=== PATIENT | male | born 1985 | race Caucasian/White ===

== ENCOUNTER 2020-10-16 19:01 | Emergency (ER) | payer OTHER ==
--- NOTE | 2020-10-16 19:22 | ED.PDOC ---
History of Present Illness - General Chief Complaint: Laceration Stated Complaint: laceration to face Time Seen by Provider: 10/16/20 19:22 Additional Information: Patient is currently under quarantine at home for positive COVID-19 test. - History of Present Illness Initial Comments: Patient states he was in his yard about 2 hours ago when he slipped and fell, cutting the right side of his face and some exposed chain-link fencing. Patient denies any significant pain or swelling to the face, any difficulty opening his mouth or swallowing. No loss of consciousness or neck pain. Patient is unaware when his last tetanus shot was given to him. Occurred: this evening Severity: mild Pain Location: head Method of Injury: fall Improving Factors: nothing Worsening Factors: nothing Loss of Consciousness: no loss of consciousness Associated Symptoms (Fall): denies symptoms Review of Systems - Review of Systems Constitutional: States: chills, fever EENTM: States: nose congestion Respiratory: States: cough Cardiology: States: no symptoms reported Gastrointestinal/Abdominal: States: no symptoms reported Genitourinary: States: no symptoms reported Musculoskeletal: States: no symptoms reported Skin: States: no symptoms reported Neurological: States: no symptoms reported Endocrine: States: no symptoms reported Hematologic/Lymphatic: States: no symptoms reported Family Medical History - Family History Father Family History: Unknown Physical Exam - Physical Exam General Appearance: Alert, Comfortable Head Injury: no evidence of injury Eye Exam: bilateral normal ENT Exam: no dental injury, other - 3-1/2 cm slightly irregular laceration to the right cheek. No swelling or tenderness of facial bones. No trismus or loss of mandibular motion.The laceration does not go through to the oral mucosa. Neck Exam: non-tender, full range of motion Cardiovascular/Respiratory: regular rate, rhythm, normal breath sounds Gastrointestinal/Abdominal: normal bowel sounds, non tender, soft Back Exam: normal inspection, no CVA tenderness Extremity Exam: no evidence of injury Neurologic: sheetrock applicator II-XII nml as tested, no motor/sensory deficits, normal mood/affect, oriented x 3 Skin Exam: normal color - Stanley Coma Score Best Eye Response (Stanley): (4) open spontaneously Best Verbal Response (Wilner): (5) oriented Best Motor Response (Wilner): (6) obeys commands Progress - Progress Progress: 10/16/20 21:15 Tetanus shot given. Procedures - Laceration/Wound Repair Right Face Wound Length (cm): 3.5 - Fully bearded In the area of laceration Wound's Depth, Shape: superficial, irregular Wound Explored: clean Irrigated w/ Saline (cc's): 200 Betadine Prep?: Yes Anesthesia: 1% Lidocaine Volume Anesthetic (cc's): 5 Wound Repaired With: sutures Suture Size/Type: 5:0 Number of Sutures: 6 Layer Closure?: No Departure - Departure Clinical Impression: Laceration of right cheek Time of Disposition: 20:06 Disposition: Discharge to Home or Self Care Condition: Good Departure Forms: ED Discharge - Pt. Copy, Patient Portal Self Enrollment Instructions: DI for Laceration Repair, Wound Care (DC) Diet: resume usual diet Additional Instructions: Return in 5 days for suture removal. Return sooner if wound appears infected.
[2020-10-16] MEDS ORDERED: TETANUS-DIPHTHERIA TOXOIDS (TD) SYG IM ONE (19:28)
[2020-10-16 19:40] VITALS: TEMP 96.2; O2SAT 97
[2020-10-16 20:29] VITALS: BP 136/98
== END 2020-10-16 20:13 | disposition home or self-care (01) ==
LOC: ER 19:01
DX: S01.411A Laceration without foreign body of right cheek and temporomandibular area, initial encounter (principal); W01.198A Fall on same level from slipping, tripping and stumbling with subsequent striking against other object, initial encounter; Y92.007 Garden or yard of unspecified non-institutional (private) residence as the place of occurrence of the external cause; U07.1 COVID-19